=== PATIENT | male | born 1970 | race Caucasian/White ===

== ENCOUNTER 2020-05-06 22:31 | Emergency (ER) | payer OTHER, SELFPAY ==
[2020-05-06 22:33] VITALS: BP 161/95; PULSE 84; RESP 16; TEMP 35.1; O2SAT 96; BMI 44.7
--- NOTE | 2020-05-06 22:45 | ED.DCSUM_ITS ---
History of Present Illness Chief Complaint: Wound Informant: Patient Onset: Weeks - 1 week Context: Gradual Onset Timing: Waxes and wanes Current Severity: Mild Maximum Severity: Mild Narrative: Patient presents with a wound to his left longoria that he is concerned may be getting infected. He states he hit his leg against an air compressor in the garage a week ago. Few days later he did open up the wound but has got watery drainage from it. He has noticed redness around the area. He has been using bacitracin on the wound which he states in the past has given him a rash. He denies fever or chills. He did have some body aches recently but states he also got his first Covid vaccine and assumed that his achiness was secondary to the shot. - Past Medical History (1) Prediabetes Status: Chronic (2) GERD (gastroesophageal reflux disease) Status: Chronic (3) High cholesterol Status: Chronic (4) Gout Status: Chronic Past Medical History - Allergies and Home Meds Allergies/Adverse Reactions: Allergies bacitracin [From Neosporin ([id number])] Allergy (Verified 05/06/20 22:32) Rash neomycin [From Neosporin ([id number])] Allergy (Verified 05/06/20 22:32) Rash polymyxin B [From Neosporin ([id number])] Allergy (Verified 05/06/20 22:32) Rash Primary Care Physician: Lynn Wilson,Out of [Primary Care Provider] - Prior records reviewed: Yes Smoking Status: Never smoker Review of Systems General: Denies: Chills, Fever Eyes: Denies: Visual changes - bilaterally ENT: Denies: Bilateral ear pain Cardiovascular: Denies: Chest pain Respiratory: Denies: Dyspnea, Cough Gastrointestinal: Denies: Abdominal pain, Vomiting, Diarrhea Skin: Reports: Wounds Neurological: Denies: Headache Hematologic: Denies: Easy bruising, Easy bleeding Allergy: Denies: Uticaria Physical Exam Vital Signs/Narrative: Vital Signs Temp Pulse Resp BP Pulse Ox 05/06/20 22:33 95.2 F L 84 16 161/95 H 96 Inital Vital Signs reviewed: Yes General: Well nourished, Well developed Head: Normocephalic Eyes: Perrl, EOMI Cardiovascular: Regular rate, Regular rhythm Respiratory: No distress, CTA bilaterally Abdomen: Soft, Nontender Skin: - - 3 cm round area of erythema on the lower anterior lateral longoria of the left leg. There is a small central ulceration. No palpable abscess. No lymphangitic streaking. Neurological: Alert, Oriented x3 Psychological: Normal affect Diagnostic/Tx/Re-eval - Medical Decision Making At this time patient has no evidence of abscess. Wound care instructions are provided. He will be treated with a course of Bactrim and Keflex, first dose given here. ED Disposition - Plan for ED Patient: Disposition: Home or Assisted Living Diagnosis: Cellulitis Instructions: ED Cellulitis Prescriptions: Smz/Tmp Ds [Bactrim Ds] 1 tablet PO BID #20 tab Transmission Status: Pending to [facility] Cephalexin [Keflex] 500 mg PO Q6 #40 capsule Transmission Status: Pending to [facility] Referrals: [facility] Doctor,Out of [Primary Care Provider] - 1 Week if not improving
[2020-05-06] MEDS: Cephalexin 250 MG Capsule 500 MG PO (22:59)
[2020-05-06] MEDS: Smz/Tmp Ds Tablet 1 TABLET PO (22:59)
== END 2020-05-06 23:03 | disposition home or self-care (01) ==
PROVIDERS: Emergency Provider Emergency Medicine; PCP Family Medicine
DX: L03.116 Cellulitis of left lower limb (principal); K21.9 Gastro-esophageal reflux disease without esophagitis; E78.00 Pure hypercholesterolemia, unspecified; Z79.899 Other long term (current) drug therapy
CPT/HCPCS: 99283

== ENCOUNTER → 2020-12-22 09:22 | Outpatient (CLI) | payer OTHER, SELFPAY | PROVIDERS: PCP Family Medicine; Visit Provider Family Medicine | DX: Z23 Encounter for immunization (principal) | CPT/HCPCS: 0004A; 91300 ==